=== PATIENT | male | born 1990 | race African-American/Black ===

== ENCOUNTER 2017-01-25 17:23 | Emergency (ER) | payer MEDICAID ==
[~2017-01-25] VITALS: Ht 190.5 cm; Wt 93.0 kg
[2017-01-25] MEDS ORDERED: IBUPROFEN 800MG TABLET PO ONE (18:30)
[2017-01-25] MEDS ORDERED: KETOROLAC 60MG/2ML VIAL IM ONE (19:45)
[2017-01-25 19:55] VITALS: BP 117/63
== END 2017-01-25 20:44 | disposition home or self-care (01) ==
LOC: ER 17:25
DX: S93.402A Sprain of unspecified ligament of left ankle, initial encounter (principal); J45.909 Unspecified asthma, uncomplicated; X58.XXXA Exposure to other specified factors, initial encounter; Y93.67 Activity, basketball; Y92.89 Other specified places as the place of occurrence of the external cause; Y99.8 Other external cause status
CPT/HCPCS: 73610; 96372; 99284; J1885; Z7610

== ENCOUNTER 2018-01-24 12:22 | Emergency (ER) | payer MEDICAID | END 2018-01-24 15:20 | disposition left against medical advice (07) | LOC: ER 13:37 | DX: Z53.21 Procedure and treatment not carried out due to patient leaving prior to being seen by health care provider (principal) ==